=== PATIENT | female | born 1935 | race Caucasian/White ===

== ENCOUNTER → 2016-09-14 | Outpatient (CLI) | payer OTHER, MEDICARE ==
[~2016-09-14] VITALS: Ht 162.6 cm; Wt 63.5 kg
[~2016-09-14] MED LIST: CALCIUM 500 +1 EACH PO; CENTRUM SILVER1 EAC4 PO; DOCUSATE SODIU100 MG PO; HYDROCHLOROTH12.5 M2 PO; HYDROCODON-ACE1 EAC7 PO; LIPITOR10 MG PO; NORVASC5 MG PO; TRICOR145 MG PO
== END | disposition home or self-care (01) ==
LOC: AMB 07:46
DX: K31.89 Other diseases of stomach and duodenum (principal); D64.9 Anemia, unspecified; I10 Essential (primary) hypertension; E78.5 Hyperlipidemia, unspecified; Z86.010 Personal history of colon polyps; Z87.11 Personal history of peptic ulcer disease; Z87.891 Personal history of nicotine dependence; Z82.49 Family history of ischemic heart disease and other diseases of the circulatory system; Z88.5 Allergy status to narcotic agent; Z88.6 Allergy status to analgesic agent
CPT/HCPCS: 88305; J0330; J1100; J2250; J2405; J3010

== ENCOUNTER 2016-09-16 16:36 | Inpatient (IN) | payer OTHER, MEDICARE ==
[~2016-09-16] VITALS: Ht 162.6 cm; Wt 63.0 kg
[2016-09-16 17:45] LABS: ADD MIUA? YES; BILIRUBIN NEGATIVE; BLOOD NEGATIVE; GLUCOSE (STRIP) NEGATIVE; KETONES 5; LEUKOCYTES NEGATIVE; NITRITE NEGATIVE; PROTEIN (STRIP) 100; SPECIFIC GRAVITY 1.019 (1.000-1.030)
[2016-09-16 17:51] LABS: BACTERIA RARE /HPF; COLOR DK YELLOW ((YELLOW)); EPITHELIAL CELLS RARE /HPF; MUCUS 4+ /LPF; RED BLOOD CELLS 0-5 /HPF (0-5); WHITE BLOOD CELLS 0-5 /HPF (0-5)
[2016-09-16 18:07] LABS: HEMATOCRIT 44.5 % (36.0-46.0); MCH 29.1 PG (29.0-34.0); MCHC 32.6 G/DL (30.0-36.0); MCV 89.2 FL (83-99); MEAN PLAT.VOLUME 10.7 uM^3 (9.5-12.4); PLATELET COUNT 254 K/uL (156-360); RBC DIS.WIDTH-CV 14.5 % (11.8-14.6); RBC DIS.WIDTH-SD 46.8 % (39-53); RED BLOOD COUNT 4.99 M/uL (3.80-5.20); WHITE BLOOD COUNT 11.3 K/uL (4.1-10.2)
[2016-09-16 18:14] LABS: CHLORIDE 104 mEq/L (99-109); POTASSIUM 3.6 mEq/L (3.7-5.4); SODIUM 143 mEq/L (136-147)
[2016-09-16 18:17] LABS: GLUCOSE 159 mg/dL (70-99)
[2016-09-16 18:18] LABS: ANION GAP 18 MEQ/L (2-14)
[2016-09-16 18:19] LABS: TOTAL BILIRUBIN 0.8 mg/dL (0.0-1.0)
[2016-09-16 18:20] LABS: ALKALINE PHOSPHATASE 89 IU/L (3-129); GFR ESTIMATE (CALCULATED) > 59 mL/min/
[2016-09-16 18:21] LABS: UREA NITROGEN (BUN) 19 mg/dL (9-23)
[2016-09-17] VITALS (7 sets, daily range): BP systolic 122–138; BP diastolic 58–64
[2016-09-17 06:46] LABS: HEMATOCRIT 30.4 % (36.0-46.0); MCH 29.2 PG (29.0-34.0); MCHC 32.2 G/DL (30.0-36.0); MCV 90.5 FL (83-99); MEAN PLAT.VOLUME 10.9 uM^3 (9.5-12.4); PLATELET COUNT 188 K/uL (156-360); RBC DIS.WIDTH-CV 14.8 % (11.8-14.6); RBC DIS.WIDTH-SD 48.9 % (39-53); RED BLOOD COUNT 3.36 M/uL (3.80-5.20)
[2016-09-17 07:01] LABS: ALKALINE PHOSPHATASE 52 IU/L (3-129); ANION GAP 9 MEQ/L (2-14); CHLORIDE 109 MEQ/L (99-109); GFR ESTIMATE (CALCULATED) > 59 mL/min/; GLUCOSE 150 mg/dL (70-99); MAGNESIUM 1.5 mg/dl (1.3-2.7); POTASSIUM 3.6 MEQ/L (3.7-5.4); SAMPLE HEMOLYSIS CHECK 0; SAMPLE ICTERIC CHECK 0; SAMPLE LIPEMIA CHECK 0; SODIUM 139 MEQ/L (136-147); TOTAL BILIRUBIN 0.6 MG/DL (0.0-1.0); UREA NITROGEN (BUN) 19 mg/dL (9-23)
[2016-09-17 07:16] LABS: ABS NEUTROPHIL COUNT 5.3; ANISOCYTOSIS 1+; BAND NEUTROPHILS 26.3 % (0-8.0); EOSINOPHIL ABS CT 0; INSTRUMENT ABS NEUTROPHIL CT 5.2 K/uL; LYMPHOCYTES 3.5 % (15.0-45.0); MICROCYTOSIS 1+; PLAT.SUFFICIENCY ADEQUATE; SEG.NEUTROPHILS 61.4 % (46.0-76.0)
[2016-09-18 03:41] VITALS: BP 150/67
[2016-09-18 06:14] LABS: HEMATOCRIT 27.2 % (36.0-46.0); MCV 90.7 FL (83-99); MEAN PLAT.VOLUME 10.9 uM^3 (9.5-12.4); PLATELET COUNT 163 K/uL (156-360); RBC DIS.WIDTH-CV 14.9 % (11.8-14.6); RBC DIS.WIDTH-SD 49.9 % (39-53)
[2016-09-18 06:15] LABS: WHITE BLOOD COUNT 8.9 K/uL (4.1-10.2)
[2016-09-18 07:06] LABS: ALKALINE PHOSPHATASE 55 IU/L (3-129); ANION GAP 6 MEQ/L (2-14); CHLORIDE 111 MEQ/L (99-109); GFR ESTIMATE (CALCULATED) > 59 mL/min/; GLUCOSE 151 mg/dL (70-99); POTASSIUM 3.4 MEQ/L (3.7-5.4); SAMPLE HEMOLYSIS CHECK 0; SAMPLE ICTERIC CHECK 0; SAMPLE LIPEMIA CHECK 0; SODIUM 140 MEQ/L (136-147); TOTAL BILIRUBIN 0.5 MG/DL (0.0-1.0); UREA NITROGEN (BUN) 21 mg/dL (9-23)
[2016-09-18 07:09] LABS: MAGNESIUM 2.1 mg/dl (1.3-2.7)
[2016-09-18 07:20] VITALS: BP 154/55
[2016-09-18 07:57] LABS: EOSINOPHIL (%) 0.1 % (0-5); HEMATOLOGY COMMENT 1 SMEAR COMPATIBLE; IMMATURE GRANULOCYTE (%) 0.7 % (0.0-0.7); IMMATURE GRANULOCYTE COUNT 0.1 K/uL; INSTRUMENT ABS NEUTROPHIL CT 7.6 K/uL; LYMPHOCYTE COUNT 0.9 K/uL (1.0-2.8); MONOCYTE (%) 4.6 % (3-12); MONOCYTE COUNT 0.4 K/uL (0-0.8); NEUTROPHIL COUNT 7.6 K/uL (1.8-6.4)
[2016-09-18 12:20] VITALS: BP 148/56
[2016-09-18 15:52] VITALS: BP 140/64
[2016-09-18 18:38] VITALS: BP 143/65
[2016-09-18 23:13] VITALS: BP 125/60
[2016-09-19 02:51] VITALS: BP 134/63
[2016-09-19 06:55] VITALS: BP 126/62
[2016-09-19 07:12] LABS: EOSINOPHIL COUNT 0.4 K/uL (0-0.3); HEMATOCRIT 24.2 % (36.0-46.0); IMMATURE GRANULOCYTE (%) 1.4 % (0.0-0.7); IMMATURE GRANULOCYTE COUNT 0.1 K/uL; INSTRUMENT ABS NEUTROPHIL CT 6.1 K/uL; LYMPHOCYTE COUNT 1.1 K/uL (1.0-2.8); MCH 29.3 PG (29.0-34.0); MCHC 32.2 G/DL (30.0-36.0); MEAN PLAT.VOLUME 10.6 uM^3 (9.5-12.4); MONOCYTE (%) 6.5 % (3-12); MONOCYTE COUNT 0.5 K/uL (0-0.8); NEUTROPHIL (%) 73.3 % (45-76); NEUTROPHIL COUNT 6.1 K/uL (1.8-6.4); PLATELET COUNT 152 K/uL (156-360); RBC DIS.WIDTH-CV 14.6 % (11.8-14.6); RBC DIS.WIDTH-SD 49.2 % (39-53); RED BLOOD COUNT 2.66 M/uL (3.80-5.20); WHITE BLOOD COUNT 8.4 K/uL (4.1-10.2)
[2016-09-19 07:34] LABS: ALKALINE PHOSPHATASE 74 IU/L (3-129); ANION GAP 5 MEQ/L (2-14); CHLORIDE 110 MEQ/L (99-109); GFR ESTIMATE (CALCULATED) > 59 mL/min/; GLUCOSE 135 mg/dL (70-99); MAGNESIUM 1.9 mg/dl (1.3-2.7); POTASSIUM 3.5 MEQ/L (3.7-5.4); SAMPLE HEMOLYSIS CHECK 0; SAMPLE ICTERIC CHECK 0; SAMPLE LIPEMIA CHECK 0; SODIUM 139 MEQ/L (136-147); TOTAL BILIRUBIN 0.5 MG/DL (0.0-1.0); UREA NITROGEN (BUN) 15 mg/dL (9-23)
[2016-09-19 12:22] VITALS: BP 134/63
[2016-09-19 16:05] VITALS: BP 149/78
[2016-09-19 19:55] VITALS: BP 132/61
[2016-09-19 23:22] VITALS: BP 139/62
[2016-09-20 04:54] VITALS: BP 127/65
[2016-09-20 07:02] LABS: EOSINOPHIL (%) 7.7 % (0-5); EOSINOPHIL COUNT 0.7 K/uL (0-0.3); HEMATOCRIT 24.3 % (36.0-46.0); IMMATURE GRANULOCYTE (%) 1.8 % (0.0-0.7); IMMATURE GRANULOCYTE COUNT 0.2 K/uL; INSTRUMENT ABS NEUTROPHIL CT 5.9 K/uL; LYMPHOCYTE COUNT 1.3 K/uL (1.0-2.8); MCH 29.1 PG (29.0-34.0); MCHC 32.1 G/DL (30.0-36.0); MCV 90.7 FL (83-99); MEAN PLAT.VOLUME 10.4 uM^3 (9.5-12.4); MONOCYTE (%) 7.2 % (3-12); MONOCYTE COUNT 0.6 K/uL (0-0.8); NEUTROPHIL (%) 67.6 % (45-76); NEUTROPHIL COUNT 5.9 K/uL (1.8-6.4); PLATELET COUNT 180 K/uL (156-360); RBC DIS.WIDTH-CV 14.3 % (11.8-14.6); RBC DIS.WIDTH-SD 47.6 % (39-53); RED BLOOD COUNT 2.68 M/uL (3.80-5.20); WHITE BLOOD COUNT 8.7 K/uL (4.1-10.2)
[2016-09-20 07:32] VITALS: BP 125/60
[2016-09-20 07:37] LABS: ANION GAP 7 MEQ/L (2-14); CHLORIDE 109 MEQ/L (99-109); GFR ESTIMATE (CALCULATED) > 59 mL/min/; GLUCOSE 124 mg/dL (70-99); MAGNESIUM 1.7 mg/dl (1.3-2.7); POTASSIUM 3.2 MEQ/L (3.7-5.4); SAMPLE HEMOLYSIS CHECK 0; SAMPLE ICTERIC CHECK 0; SAMPLE LIPEMIA CHECK 0; SODIUM 140 MEQ/L (136-147); TOTAL BILIRUBIN 0.5 MG/DL (0.0-1.0); UREA NITROGEN (BUN) 8 mg/dL (9-23)
[2016-09-20 07:39] LABS: ALKALINE PHOSPHATASE 109 IU/L (3-129)
[2016-09-20 11:25] VITALS: BP 137/66
[2016-09-20 15:41] VITALS: BP 139/63
[2016-09-20 19:06] VITALS: BP 133/62
[2016-09-20 23:39] VITALS: BP 139/63
[2016-09-21 03:10] VITALS: BP 141/65
[2016-09-21 07:45] VITALS: BP 127/60
[2016-09-21 09:05] LABS: HEMATOCRIT 24.8 % (36.0-46.0); MCH 28.6 PG (29.0-34.0); MCHC 31.9 G/DL (30.0-36.0); MCV 89.9 FL (83-99); MEAN PLAT.VOLUME 9.6 uM^3 (9.5-12.4); PLATELET COUNT 211 K/uL (156-360); RBC DIS.WIDTH-CV 14.2 % (11.8-14.6); RBC DIS.WIDTH-SD 46.4 % (39-53); RED BLOOD COUNT 2.76 M/uL (3.80-5.20); WHITE BLOOD COUNT 8.4 K/uL (4.1-10.2)
[2016-09-21 09:33] LABS: EOSINOPHIL (%) 6.5 % (0-5); EOSINOPHIL COUNT 0.6 K/uL (0-0.3); IMMATURE GRANULOCYTE (%) 2.7 % (0.0-0.7); IMMATURE GRANULOCYTE COUNT 0.2 K/uL; INSTRUMENT ABS NEUTROPHIL CT 5.6 K/uL; LYMPHOCYTE COUNT 1.3 K/uL (1.0-2.8); MONOCYTE (%) 8.6 % (3-12); MONOCYTE COUNT 0.7 K/uL (0-0.8); NEUTROPHIL (%) 66.5 % (45-76); NEUTROPHIL COUNT 5.6 K/uL (1.8-6.4)
[2016-09-21 09:34] LABS: ALKALINE PHOSPHATASE 150 IU/L (3-129); ANION GAP 6 MEQ/L (2-14); CHLORIDE 108 MEQ/L (99-109); GFR ESTIMATE (CALCULATED) > 59 mL/min/; GLUCOSE 116 mg/dL (70-99); MAGNESIUM 1.6 mg/dl (1.3-2.7); POTASSIUM 3.7 MEQ/L (3.7-5.4); SAMPLE HEMOLYSIS CHECK 0; SAMPLE ICTERIC CHECK 0; SAMPLE LIPEMIA CHECK 0; SODIUM 140 MEQ/L (136-147); TOTAL BILIRUBIN 0.5 MG/DL (0.0-1.0); UREA NITROGEN (BUN) 6 mg/dL (9-23)
[2016-09-21 11:35] VITALS: BP 133/60
[2016-09-21 16:00] VITALS: BP 145/63
[2016-09-21 19:30] VITALS: BP 137/62
[2016-09-21 23:35] VITALS: BP 125/60
[2016-09-22 03:10] VITALS: BP 141/63
[2016-09-22 06:48] LABS: HEMATOCRIT 24.5 % (36.0-46.0); MCH 28.7 PG (29.0-34.0); MCHC 31.8 G/DL (30.0-36.0); MCV 90.1 FL (83-99); MEAN PLAT.VOLUME 9.7 uM^3 (9.5-12.4); PLATELET COUNT 234 K/uL (156-360); RBC DIS.WIDTH-CV 14.3 % (11.8-14.6); RBC DIS.WIDTH-SD 46.4 % (39-53); RED BLOOD COUNT 2.72 M/uL (3.80-5.20); WHITE BLOOD COUNT 8.8 K/uL (4.1-10.2)
[2016-09-22 07:00] VITALS: BP 123/57
[2016-09-22 07:16] LABS: ALKALINE PHOSPHATASE 145 IU/L (3-129); ANION GAP 8 MEQ/L (2-14); CHLORIDE 106 MEQ/L (99-109); GFR ESTIMATE (CALCULATED) > 59 mL/min/; GLUCOSE 103 mg/dL (70-99); MAGNESIUM 1.7 mg/dl (1.3-2.7); POTASSIUM 3.3 MEQ/L (3.7-5.4); SAMPLE HEMOLYSIS CHECK 0; SAMPLE ICTERIC CHECK 0; SAMPLE LIPEMIA CHECK 0; SODIUM 141 MEQ/L (136-147); TOTAL BILIRUBIN 0.5 MG/DL (0.0-1.0); UREA NITROGEN (BUN) 6 mg/dL (9-23)
[2016-09-22 07:41] LABS: EOSINOPHIL (%) 6.3 % (0-5); EOSINOPHIL COUNT 0.6 K/uL (0-0.3); IMMATURE GRANULOCYTE (%) 2.7 % (0.0-0.7); IMMATURE GRANULOCYTE COUNT 0.2 K/uL; INSTRUMENT ABS NEUTROPHIL CT 5.8 K/uL; LYMPHOCYTE COUNT 1.5 K/uL (1.0-2.8); MONOCYTE (%) 8.5 % (3-12); MONOCYTE COUNT 0.8 K/uL (0-0.8); NEUTROPHIL (%) 65.8 % (45-76); NEUTROPHIL COUNT 5.8 K/uL (1.8-6.4)
[2016-09-22 11:50] VITALS: BP 129/57
[2016-09-22 15:42] VITALS: BP 120/56
[2016-09-22 19:20] VITALS: BP 134/59
[2016-09-22 23:22] VITALS: BP 111/53
[2016-09-23 03:27] VITALS: BP 110/54
[2016-09-23 07:36] VITALS: BP 118/55
[2016-09-23] MEDS ORDERED: TRAMADOL HCL50 MG PO (09:49)
[2016-09-23 11:05] VITALS: BP 119/58
== END 2016-09-23 15:55 | disposition home health service (06) | DRG 329 ==
LOC: EME 16:36 → 2EAST 20:34 → EDOF 20:34 → 2EAST 09-17 03:31
PROVIDERS: Nurse Practitioner Family; Surgery
DX: K65.8 Other peritonitis (principal); K55.049 Acute infarction of large intestine, extent unspecified; E78.5 Hyperlipidemia, unspecified; I10 Essential (primary) hypertension; R00.0 Tachycardia, unspecified; D72.829 Elevated white blood cell count, unspecified; D64.9 Anemia, unspecified; Z87.891 Personal history of nicotine dependence; J45.909 Unspecified asthma, uncomplicated
CPT/HCPCS: 71010; 74000; 74177; 80053; 81003; 82948; 83735; 84100; 85025; 85027; 86900; 86901; 88305; 88307; 93005; 97530 GO; 99281; 99285; J0131; J0330; J1100; J1170; J1650; J2250; J2405; J2543; J3010; J3475; J7030; J7040; J7050

== ENCOUNTER → 2017-06-20 | Outpatient (CLI) | payer MEDICARE ==
[~2017-06-20] MED LIST changes: +ACID REDUCER 1150 MG PO; +KLOR-CON 1010 ME1 PO; +TRAMADOL HCL50 MG PO
== END | disposition home or self-care (01) ==
LOC: CDC 14:23
DX: Z01.810 Encounter for preprocedural cardiovascular examination (principal); K57.90 Diverticulosis of intestine, part unspecified, without perforation or abscess without bleeding; R94.31 Abnormal electrocardiogram [ECG] [EKG]
CPT/HCPCS: 93000

== ENCOUNTER 2017-06-26 22:03 | Inpatient (IN) | payer OTHER, MEDICARE ==
[~2017-06-26] VITALS: Ht 162.6 cm; Wt 73.7 kg
[2017-06-27 05:58] VITALS: BP 149/66
[2017-06-27 18:32] VITALS: BP 119/58
[2017-06-27 19:34] VITALS: BP 119/57
[2017-06-27 23:18] VITALS: BP 117/55
[2017-06-28 03:41] VITALS: BP 130/59
[2017-06-28 05:09] LABS: HEMATOCRIT 28.7 % (36.0-46.0); MCH 29.4 PG (29.0-34.0); MCHC 33.8 G/DL (30.0-36.0); PLATELET COUNT 175 K/uL (156-360); RBC DIS.WIDTH-CV 13.6 % (11.8-14.6); RBC DIS.WIDTH-SD 42.7 % (39-53); WHITE BLOOD COUNT 10.9 K/uL (4.1-10.2)
[2017-06-28 05:17] LABS: HEMOGLOBIN 9.7 G/DL (11.9-15.5)
[2017-06-28 05:38] LABS: ALBUMIN 2.2 G/DL (3.2-4.8); ALT (GPT) 17 IU/L (3-49); AST (GOT) 21 IU/L (2-34); CHLORIDE 106 MEQ/L (99-109); CREATININE 0.8 MG/DL (0.6-1.3); GFR ESTIMATE (CALCULATED) > 59 mL/min/; GLUCOSE 142 mg/dL (70-99); MAGNESIUM 1.6 mg/dl (1.3-2.7); PHOSPHORUS 3.4 mg/dL (2.5-4.9); SODIUM 140 MEQ/L (136-147); UREA NITROGEN (BUN) 14 mg/dL (9-23)
[2017-06-28 05:45] LABS: ALKALINE PHOSPHATASE 37 IU/L (3-129); POTASSIUM 3.1 MEQ/L (3.7-5.4); TOTAL BILIRUBIN 0.4 MG/DL (0.0-1.0); TOTAL PROTEIN 3.6 G/DL (6.4-8.3)
[2017-06-28 07:39] VITALS: BP 111/56
[2017-06-28 12:06] VITALS: BP 117/53
[2017-06-28 15:45] VITALS: BP 142/64
[2017-06-28 19:50] VITALS: BP 145/67
[2017-06-29 01:22] VITALS: BP 139/82
[2017-06-29 04:41] VITALS: BP 130/81
[2017-06-29 09:00] VITALS: BP 169/72
[2017-06-29 09:00] LABS: BASOPHIL (%) 0.1 % (0-1); EOSINOPHIL (%) 0.1 % (0-5); HEMATOCRIT 30.5 % (36.0-46.0); HEMOGLOBIN 10.2 G/DL (11.9-15.5); IMMATURE GRANULOCYTE (%) 0.5 % (0.0-0.7); LYMPHOCYTE (%) 8.5 % (15-42); LYMPHOCYTE COUNT 1.2 K/uL (1.0-2.8); MCHC 33.4 G/DL (30.0-36.0); MCV 89.7 FL (83-99); MONOCYTE (%) 6.5 % (3-12); MONOCYTE COUNT 0.9 K/uL (0-0.8); NEUTROPHIL (%) 84.3 % (45-76); NEUTROPHIL COUNT 11.4 K/uL (1.8-6.4); PLATELET COUNT 171 K/uL (156-360); RBC DIS.WIDTH-CV 14.6 % (11.8-14.6); RBC DIS.WIDTH-SD 47.8 % (39-53); WHITE BLOOD COUNT 13.5 K/uL (4.1-10.2)
[2017-06-29 09:26] LABS: ALBUMIN 2.3 G/DL (3.2-4.8); ALKALINE PHOSPHATASE 49 IU/L (3-129); ALT (GPT) 15 IU/L (3-49); AST (GOT) 15 IU/L (2-34); CHLORIDE 110 MEQ/L (99-109); CREATININE 0.6 MG/DL (0.6-1.3); GFR ESTIMATE (CALCULATED) > 59 mL/min/; GLUCOSE 136 mg/dL (70-99); MAGNESIUM 1.7 mg/dl (1.3-2.7); PHOSPHORUS 2.3 mg/dL (2.5-4.9); POTASSIUM 3.8 MEQ/L (3.7-5.4); SODIUM 143 MEQ/L (136-147); TOTAL BILIRUBIN 0.7 MG/DL (0.0-1.0); TOTAL PROTEIN 4.1 G/DL (6.4-8.3); UREA NITROGEN (BUN) 17 mg/dL (9-23)
[2017-06-29 12:00] VITALS: BP 153/70
[2017-06-29 14:29] LABS: APPEARANCE CLEAR ((CLEAR)); BILIRUBIN NEGATIVE; BLOOD LARGE; COLOR YELLOW ((YELLOW)); GLUCOSE (STRIP) NEGATIVE; KETONES 5; LEUKOCYTES TRACE; NITRITE NEGATIVE; PROTEIN (STRIP) 30; SPECIFIC GRAVITY 1.016 (1.000-1.030); UROBILINOGEN 0.2 MG/DL (0.2-1.0)
[2017-06-29 14:37] LABS: BACTERIA 1+ /HPF; EPITHELIAL CELLS NONE SEEN /HPF; MUCUS TRACE /LPF; RED BLOOD CELLS TNTC /HPF (0-5); WHITE BLOOD CELLS 15-20 /HPF (0-5)
[2017-06-29 16:56] VITALS: BP 150/65
[2017-06-29 18:00] LABS: BASOPHIL (%) 0.1 % (0-1); EOSINOPHIL (%) 0.1 % (0-5); HEMATOCRIT 31.6 % (36.0-46.0); HEMOGLOBIN 10.5 G/DL (11.9-15.5); IMMATURE GRANULOCYTE (%) 0.9 % (0.0-0.7); LYMPHOCYTE (%) 6.4 % (15-42); LYMPHOCYTE COUNT 0.9 K/uL (1.0-2.8); MCH 30.1 PG (29.0-34.0); MCHC 33.2 G/DL (30.0-36.0); MCV 90.5 FL (83-99); MONOCYTE (%) 4.4 % (3-12); MONOCYTE COUNT 0.6 K/uL (0-0.8); NEUTROPHIL (%) 88.1 % (45-76); NEUTROPHIL COUNT 12.1 K/uL (1.8-6.4); PLATELET COUNT 188 K/uL (156-360); RBC DIS.WIDTH-CV 14.8 % (11.8-14.6); RBC DIS.WIDTH-SD 49.1 % (39-53); RED BLOOD COUNT 3.49 M/uL (3.80-5.20); WHITE BLOOD COUNT 13.7 K/uL (4.1-10.2)
[2017-06-29 19:30] VITALS: BP 128/60
[2017-06-30 00:15] VITALS: BP 122/60
[2017-06-30 03:16] VITALS: BP 122/66
[2017-06-30 06:02] LABS: HEMATOCRIT 29.1 % (36.0-46.0); HEMOGLOBIN 9.3 G/DL (11.9-15.5); MCH 29.1 PG (29.0-34.0); MCV 90.9 FL (83-99); PLATELET COUNT 183 K/uL (156-360); RBC DIS.WIDTH-CV 14.6 % (11.8-14.6); RBC DIS.WIDTH-SD 49.2 % (39-53); WHITE BLOOD COUNT 11.8 K/uL (4.1-10.2)
[2017-06-30 06:24] LABS: ALBUMIN 2.2 G/DL (3.2-4.8); ALKALINE PHOSPHATASE 52 IU/L (3-129); ALT (GPT) 13 IU/L (3-49); AST (GOT) 11 IU/L (2-34); CHLORIDE 111 MEQ/L (99-109); CREATININE 0.7 MG/DL (0.6-1.3); GFR ESTIMATE (CALCULATED) > 59 mL/min/; GLUCOSE 132 mg/dL (70-99); POTASSIUM 3.5 MEQ/L (3.7-5.4); SODIUM 145 MEQ/L (136-147); TOTAL BILIRUBIN 0.8 MG/DL (0.0-1.0); TOTAL PROTEIN 3.7 G/DL (6.4-8.3); UREA NITROGEN (BUN) 20 mg/dL (9-23)
[2017-06-30 07:49] VITALS: BP 122/59
[2017-06-30 11:20] VITALS: BP 125/56
[2017-06-30 15:56] VITALS: BP 122/56
[2017-06-30 20:30] VITALS: BP 129/60
[2017-07-01 00:10] VITALS: BP 128/65
[2017-07-01 01:56] VITALS: BP 130/74
[2017-07-01 05:48] LABS: BASOPHIL (%) 0.2 % (0-1); EOSINOPHIL (%) 1.7 % (0-5); EOSINOPHIL COUNT 0.2 K/uL (0-0.3); HEMATOCRIT 27.8 % (36.0-46.0); IMMATURE GRANULOCYTE (%) 0.7 % (0.0-0.7); LYMPHOCYTE (%) 8.7 % (15-42); LYMPHOCYTE COUNT 0.9 K/uL (1.0-2.8); MCH 29.3 PG (29.0-34.0); MCHC 32.4 G/DL (30.0-36.0); MCV 90.6 FL (83-99); MONOCYTE COUNT 0.8 K/uL (0-0.8); NEUTROPHIL (%) 81.7 % (45-76); NEUTROPHIL COUNT 8.7 K/uL (1.8-6.4); PLATELET COUNT 198 K/uL (156-360); RBC DIS.WIDTH-CV 14.8 % (11.8-14.6); RED BLOOD COUNT 3.07 M/uL (3.80-5.20); WHITE BLOOD COUNT 10.6 K/uL (4.1-10.2)
[2017-07-01 06:33] LABS: ALBUMIN 2.3 G/DL (3.2-4.8); ALKALINE PHOSPHATASE 55 IU/L (3-129); ALT (GPT) 11 IU/L (3-49); AST (GOT) 10 IU/L (2-34); CHLORIDE 110 MEQ/L (99-109); CREATININE 0.7 MG/DL (0.6-1.3); GFR ESTIMATE (CALCULATED) > 59 mL/min/; GLUCOSE 115 mg/dL (70-99); MAGNESIUM 2.2 mg/dl (1.3-2.7); POTASSIUM 3.5 MEQ/L (3.7-5.4); SODIUM 145 MEQ/L (136-147); TOTAL BILIRUBIN 0.9 MG/DL (0.0-1.0); TOTAL PROTEIN 4.1 G/DL (6.4-8.3); UREA NITROGEN (BUN) 25 mg/dL (9-23)
[2017-07-01 07:42] VITALS: BP 128/59
[2017-07-01 11:07] VITALS: BP 119/59
[2017-07-01 14:53] VITALS: BP 156/68
[2017-07-01 20:45] VITALS: BP 130/80
[2017-07-02 04:05] VITALS: BP 120/70
[2017-07-02 04:37] LABS: HEMATOCRIT 31.4 % (36.0-46.0); HEMOGLOBIN 10.3 G/DL (11.9-15.5); MCHC 32.8 G/DL (30.0-36.0); MCV 91.5 FL (83-99); PLATELET COUNT 253 K/uL (156-360); RBC DIS.WIDTH-CV 14.7 % (11.8-14.6); RBC DIS.WIDTH-SD 49.3 % (39-53); RED BLOOD COUNT 3.43 M/uL (3.80-5.20); WHITE BLOOD COUNT 14.7 K/uL (4.1-10.2)
[2017-07-02 04:49] LABS: CHLORIDE 116 mEq/L (99-109); POTASSIUM 3.9 mEq/L (3.7-5.4); SODIUM 150 mEq/L (136-147)
[2017-07-02 04:50] LABS: GLUCOSE 143 mg/dL (70-99)
[2017-07-02 04:54] LABS: CREATININE 0.8 mg/dL (0.6-1.3); GFR ESTIMATE (CALCULATED) > 59 mL/min/
[2017-07-02 04:55] LABS: UREA NITROGEN (BUN) 28 mg/dL (9-23)
[2017-07-02 07:25] VITALS: BP 136/66
[2017-07-02 11:51] VITALS: BP 127/57
[2017-07-02 12:15] LABS: APPEARANCE SL.HAZY ((CLEAR)); BILIRUBIN NEGATIVE; BLOOD MODERATE; COLOR YELLOW ((YELLOW)); GLUCOSE (STRIP) NEGATIVE; KETONES 5; LEUKOCYTES NEGATIVE; NITRITE NEGATIVE; PROTEIN (STRIP) 30; SPECIFIC GRAVITY 1.025 (1.000-1.030); UROBILINOGEN 0.2 MG/DL (0.2-1.0)
[2017-07-02 12:20] LABS: BACTERIA RARE /HPF; CALCIUM OXALATE CRYSTALS 2+ /HPF; EPITHELIAL CELLS NONE SEEN /HPF; MUCUS TRACE /LPF; RED BLOOD CELLS TNTC /HPF (0-5); UCUL ADDED? YES
[2017-07-02 15:31] VITALS: BP 131/64
[2017-07-02 19:13] VITALS: BP 137/63
[2017-07-03 00:27] VITALS: BP 126/61
[2017-07-03 03:43] VITALS: BP 137/63
[2017-07-03 04:54] LABS: BASOPHIL (%) 0.1 % (0-1); EOSINOPHIL (%) 0.1 % (0-5); HEMATOCRIT 27.7 % (36.0-46.0); HEMOGLOBIN 9.1 G/DL (11.9-15.5); IMMATURE GRANULOCYTE (%) 1.5 % (0.0-0.7); LYMPHOCYTE (%) 8.5 % (15-42); LYMPHOCYTE COUNT 1.2 K/uL (1.0-2.8); MCHC 32.9 G/DL (30.0-36.0); MCV 91.4 FL (83-99); MONOCYTE COUNT 1.1 K/uL (0-0.8); NEUTROPHIL (%) 81.8 % (45-76); NEUTROPHIL COUNT 11.6 K/uL (1.8-6.4); NRBC (%) 0.1 /100 WBC (0-0); PLATELET COUNT 268 K/uL (156-360); RBC DIS.WIDTH-CV 14.8 % (11.8-14.6); RBC DIS.WIDTH-SD 49.8 % (39-53); RED BLOOD COUNT 3.03 M/uL (3.80-5.20); WHITE BLOOD COUNT 14.2 K/uL (4.1-10.2)
[2017-07-03 05:22] LABS: CHLORIDE 117 mEq/L (99-109); POTASSIUM 3.4 mEq/L (3.7-5.4); SODIUM 150 mEq/L (136-147)
[2017-07-03 05:24] LABS: GLUCOSE 169 mg/dL (70-99)
[2017-07-03 05:28] LABS: CREATININE 0.9 mg/dL (0.6-1.3); GFR ESTIMATE (CALCULATED) > 59 mL/min/; PHOSPHORUS 2.3 mg/dL (2.5-4.9)
[2017-07-03 05:29] LABS: UREA NITROGEN (BUN) 27 mg/dL (9-23)
[2017-07-03 07:41] VITALS: BP 138/64
[2017-07-03 11:13] VITALS: BP 137/55
[2017-07-03 15:30] VITALS: BP 134/61
[2017-07-03 15:39] LABS: BASOPHIL (%) 0.2 % (0-1); EOSINOPHIL (%) 0.5 % (0-5); EOSINOPHIL COUNT 0.1 K/uL (0-0.3); HEMATOCRIT 28.2 % (36.0-46.0); HEMOGLOBIN 9.1 G/DL (11.9-15.5); IMMATURE GRANULOCYTE (%) 2.3 % (0.0-0.7); LYMPHOCYTE (%) 9.1 % (15-42); LYMPHOCYTE COUNT 1.2 K/uL (1.0-2.8); MCH 29.4 PG (29.0-34.0); MCHC 32.3 G/DL (30.0-36.0); MONOCYTE (%) 7.5 % (3-12); NEUTROPHIL (%) 80.4 % (45-76); NEUTROPHIL COUNT 10.6 K/uL (1.8-6.4); NRBC (%) 0.2 /100 WBC (0-0); PLATELET COUNT 287 K/uL (156-360); RBC DIS.WIDTH-CV 14.7 % (11.8-14.6); RBC DIS.WIDTH-SD 49.3 % (39-53); WHITE BLOOD COUNT 13.1 K/uL (4.1-10.2)
[2017-07-03 16:09] LABS: CHLORIDE 115 MEQ/L (99-109); CREATININE 0.7 MG/DL (0.6-1.3); GFR ESTIMATE (CALCULATED) > 59 mL/min/; GLUCOSE 145 mg/dL (70-99); POTASSIUM 3.2 MEQ/L (3.7-5.4); SODIUM 146 MEQ/L (136-147); UREA NITROGEN (BUN) 21 mg/dL (9-23)
[2017-07-03 19:00] VITALS: BP 130/59
[2017-07-04] VITALS (7 sets, daily range): BP systolic 127–141; BP diastolic 58–68
[2017-07-04 06:50] LABS: BASOPHIL (%) 0.2 % (0-1); EOSINOPHIL (%) 0.6 % (0-5); EOSINOPHIL COUNT 0.1 K/uL (0-0.3); HEMATOCRIT 26.8 % (36.0-46.0); HEMOGLOBIN 8.6 G/DL (11.9-15.5); IMMATURE GRANULOCYTE (%) 1.7 % (0.0-0.7); LYMPHOCYTE (%) 9.9 % (15-42); LYMPHOCYTE COUNT 1.2 K/uL (1.0-2.8); MCH 29.4 PG (29.0-34.0); MCHC 32.1 G/DL (30.0-36.0); MCV 91.5 FL (83-99); MONOCYTE (%) 6.5 % (3-12); MONOCYTE COUNT 0.8 K/uL (0-0.8); NEUTROPHIL (%) 81.1 % (45-76); NEUTROPHIL COUNT 9.6 K/uL (1.8-6.4); NRBC (%) 0.2 /100 WBC (0-0); PLATELET COUNT 267 K/uL (156-360); RBC DIS.WIDTH-SD 50.6 % (39-53); RED BLOOD COUNT 2.93 M/uL (3.80-5.20); WHITE BLOOD COUNT 11.8 K/uL (4.1-10.2)
[2017-07-04 07:11] LABS: CHLORIDE 116 MEQ/L (99-109); CREATININE 0.7 MG/DL (0.6-1.3); GFR ESTIMATE (CALCULATED) > 59 mL/min/; GLUCOSE 150 mg/dL (70-99); POTASSIUM 3.4 MEQ/L (3.7-5.4); SODIUM 149 MEQ/L (136-147); UREA NITROGEN (BUN) 15 mg/dL (9-23)
[2017-07-05 07:10] VITALS: BP 128/58
[2017-07-05 10:45] LABS: HEMATOCRIT 25.7 % (36.0-46.0); HEMOGLOBIN 8.3 G/DL (11.9-15.5); MCH 29.5 PG (29.0-34.0); MCHC 32.3 G/DL (30.0-36.0); MCV 91.5 FL (83-99); PLATELET COUNT 313 K/uL (156-360); RBC DIS.WIDTH-CV 14.7 % (11.8-14.6); RBC DIS.WIDTH-SD 50.4 % (39-53); RED BLOOD COUNT 2.81 M/uL (3.80-5.20); WHITE BLOOD COUNT 13.9 K/uL (4.1-10.2)
[2017-07-05 11:04] LABS: CHLORIDE 112 MEQ/L (99-109); POTASSIUM 3.2 MEQ/L (3.7-5.4); SODIUM 144 MEQ/L (136-147)
[2017-07-05 11:10] LABS: CREATININE 0.6 MG/DL (0.6-1.3); GFR ESTIMATE (CALCULATED) > 59 mL/min/; GLUCOSE 145 mg/dL (70-99); UREA NITROGEN (BUN) 11 mg/dL (9-23)
[2017-07-05 15:30] VITALS: BP 148/67
[2017-07-05 22:45] VITALS: BP 119/56
[2017-07-06 06:05] LABS: HEMOGLOBIN 8.1 G/DL (11.9-15.5); MCH 29.3 PG (29.0-34.0); MCHC 32.4 G/DL (30.0-36.0); MCV 90.6 FL (83-99); NRBC (%) 0.2 /100 WBC (0-0); PLATELET COUNT 337 K/uL (156-360); RBC DIS.WIDTH-CV 14.7 % (11.8-14.6); RBC DIS.WIDTH-SD 48.6 % (39-53); RED BLOOD COUNT 2.76 M/uL (3.80-5.20); WHITE BLOOD COUNT 12.2 K/uL (4.1-10.2)
[2017-07-06 06:18] LABS: CHLORIDE 110 MEQ/L (99-109); CREATININE 0.6 MG/DL (0.6-1.3); GFR ESTIMATE (CALCULATED) > 59 mL/min/; POTASSIUM 3.4 MEQ/L (3.7-5.4); SODIUM 145 MEQ/L (136-147); UREA NITROGEN (BUN) 8 mg/dL (9-23)
[2017-07-06 06:19] LABS: GLUCOSE 106 mg/dL (70-99)
[2017-07-06 08:49] VITALS: BP 135/61
[2017-07-06 15:25] VITALS: BP 147/58
[2017-07-07 00:05] VITALS: BP 131/63
[2017-07-07 06:01] LABS: HEMATOCRIT 23.1 % (36.0-46.0); HEMOGLOBIN 7.7 G/DL (11.9-15.5); MCHC 33.3 G/DL (30.0-36.0); MCV 89.9 FL (83-99); NRBC (%) 0.2 /100 WBC (0-0); PLATELET COUNT 352 K/uL (156-360); RBC DIS.WIDTH-CV 14.5 % (11.8-14.6); RBC DIS.WIDTH-SD 46.9 % (39-53); RED BLOOD COUNT 2.57 M/uL (3.80-5.20); WHITE BLOOD COUNT 9.7 K/uL (4.1-10.2)
[2017-07-07 06:19] LABS: INTER. NORMALIZED RATIO 1.2
[2017-07-07 06:21] LABS: PTT 26.2 SEC (25-37)
[2017-07-07 06:33] LABS: ALBUMIN 2.2 G/DL (3.2-4.8); ALKALINE PHOSPHATASE 72 IU/L (3-129); ALT (GPT) 13 IU/L (3-49); AST (GOT) 13 IU/L (2-34); CHLORIDE 111 MEQ/L (99-109); CREATININE 0.6 MG/DL (0.6-1.3); GFR ESTIMATE (CALCULATED) > 59 mL/min/; GLUCOSE 109 mg/dL (70-99); SODIUM 142 MEQ/L (136-147); TOTAL BILIRUBIN 0.6 MG/DL (0.0-1.0); TOTAL PROTEIN 4.6 G/DL (6.4-8.3); UREA NITROGEN (BUN) 7 mg/dL (9-23)
[2017-07-07 08:00] VITALS: BP 124/60
[2017-07-07 12:50] VITALS: BP 116/57
[2017-07-07 16:03] VITALS: BP 129/56
[2017-07-07 23:43] VITALS: BP 111/55
[2017-07-08 07:00] VITALS: BP 128/62
[2017-07-08 17:13] VITALS: BP 121/60
[2017-07-09 00:09] VITALS: BP 129/61
[2017-07-09 07:00] VITALS: BP 122/59
[2017-07-09 07:16] LABS: BASOPHIL (%) 0.2 % (0-1); EOSINOPHIL (%) 3.2 % (0-5); EOSINOPHIL COUNT 0.3 K/uL (0-0.3); HEMATOCRIT 27.6 % (36.0-46.0); IMMATURE GRANULOCYTE (%) 2.1 % (0.0-0.7); LYMPHOCYTE (%) 10.5 % (15-42); MCH 29.2 PG (29.0-34.0); MCHC 32.6 G/DL (30.0-36.0); MCV 89.6 FL (83-99); MONOCYTE (%) 7.3 % (3-12); MONOCYTE COUNT 0.7 K/uL (0-0.8); NEUTROPHIL (%) 76.7 % (45-76); NEUTROPHIL COUNT 7.5 K/uL (1.8-6.4); RBC DIS.WIDTH-CV 14.4 % (11.8-14.6); RBC DIS.WIDTH-SD 46.2 % (39-53); RED BLOOD COUNT 3.08 M/uL (3.80-5.20); WHITE BLOOD COUNT 9.8 K/uL (4.1-10.2)
[2017-07-09 07:20] LABS: PLATELET COUNT 475 K/uL (156-360)
[2017-07-09 08:08] LABS: ALBUMIN 2.4 G/DL (3.2-4.8); ALKALINE PHOSPHATASE 85 IU/L (3-129); ALT (GPT) 15 IU/L (3-49); AST (GOT) 13 IU/L (2-34); CHLORIDE 106 MEQ/L (99-109); CREATININE 0.6 MG/DL (0.6-1.3); GFR ESTIMATE (CALCULATED) > 59 mL/min/; GLUCOSE 111 mg/dL (70-99); MAGNESIUM 1.8 mg/dl (1.3-2.7); PHOSPHORUS 3.1 mg/dL (2.5-4.9); POTASSIUM 3.9 MEQ/L (3.7-5.4); SODIUM 139 MEQ/L (136-147); TOTAL BILIRUBIN 0.5 MG/DL (0.0-1.0); TOTAL PROTEIN 4.8 G/DL (6.4-8.3); UREA NITROGEN (BUN) 5 mg/dL (9-23)
[2017-07-09 16:00] VITALS: BP 124/89
[2017-07-09 23:27] VITALS: BP 121/54
[2017-07-10 07:17] LABS: CHLORIDE 106 MEQ/L (99-109); CREATININE 0.6 MG/DL (0.6-1.3); GFR ESTIMATE (CALCULATED) > 59 mL/min/; GLUCOSE 120 mg/dL (70-99); POTASSIUM 3.7 MEQ/L (3.7-5.4); SODIUM 139 MEQ/L (136-147); UREA NITROGEN (BUN) 6 mg/dL (9-23)
[2017-07-10 08:18] VITALS: BP 120/58
[2017-07-10 08:20] LABS: HEMATOCRIT 25.2 % (36.0-46.0); HEMOGLOBIN 8.2 G/DL (11.9-15.5); MCHC 32.5 G/DL (30.0-36.0); PLATELET COUNT 490 K/uL (156-360); RBC DIS.WIDTH-CV 14.6 % (11.8-14.6); RBC DIS.WIDTH-SD 46.7 % (39-53); RED BLOOD COUNT 2.83 M/uL (3.80-5.20); WHITE BLOOD COUNT 9.8 K/uL (4.1-10.2)
[2017-07-10] MEDS ORDERED: FLUCONAZOLE200 MG PO (12:16)
[2017-07-10] MEDS ORDERED: AMOX TR-K CLV1 EAC4 PO (12:16)
[2017-07-10] MEDS ORDERED: POTASSIUM CHLO20 MEQ PO (12:17)
[2017-07-10] MEDS ORDERED: HYDROCODON-ACE1 EAC7 PO (12:18)
[2017-07-10] MEDS ORDERED: PRAVACHOL40 MG PO (16:17)
[2017-07-10] MEDS ORDERED: PROTONIX40 MG PO (16:18)
== END 2017-07-10 16:05 | DRG 329 ==
LOC: ENRESERV 22:03 → 2SOUTH 06-27 05:13 → 2EAST 06-27 05:13 → 4EAST 06-27 05:13 → 2SOUTH 06-27 10:34 → ENRESERV 06-27 11:26 → 2SOUTH 06-27 14:08 → ENRESERV 06-27 17:28 → 4EAST 06-27 18:18 → ENRESERV 07-03 07:56 → 2EAST 07-03 10:32
PROVIDERS: Physician Assistant Surgical; Radiology Diagnostic Radiology; Surgery
PROC: 0DSL0ZZ Reposition Transverse Colon, Open Approach (ICD-10-PCS; principal; 2017-06-27)
PROC: 0DQ80ZZ Repair Small Intestine, Open Approach (ICD-10-PCS; principal; 2017-06-27)
PROC: 0DNE4ZZ Release Large Intestine, Percutaneous Endoscopic Approach (ICD-10-PCS; principal; 2017-06-27)
PROC: 0DNW4ZZ Release Peritoneum, Percutaneous Endoscopic Approach (ICD-10-PCS; principal; 2017-06-27)
PROC: 0DN84ZZ Release Small Intestine, Percutaneous Endoscopic Approach (ICD-10-PCS; principal; 2017-06-27)
PROC: 0T9880Z Drainage of Bilateral Ureters with Drainage Device, Via Natural or Artificial Opening Endoscopic (ICD-10-PCS; principal; 2017-06-27)
PROC: 0W9F00Z Drainage of Abdominal Wall with Drainage Device, Open Approach (ICD-10-PCS; principal; 2017-06-27)
PROC: 0W9J30Z Drainage of Pelvic Cavity with Drainage Device, Percutaneous Approach (ICD-10-PCS; 2017-07-05)
PROC: 0W9G30Z Drainage of Peritoneal Cavity with Drainage Device, Percutaneous Approach (ICD-10-PCS; 2017-07-05)
PROC: 0W9G30Z Drainage of Peritoneal Cavity with Drainage Device, Percutaneous Approach (ICD-10-PCS; 2017-07-07)
DX: Z43.3 Encounter for attention to colostomy (principal); K66.0 Peritoneal adhesions (postprocedural) (postinfection); K65.1 Peritoneal abscess; E78.5 Hyperlipidemia, unspecified; Z88.6 Allergy status to analgesic agent; Z53.31 Laparoscopic surgical procedure converted to open procedure; Z88.5 Allergy status to narcotic agent; K63.5 Polyp of colon; Z87.891 Personal history of nicotine dependence; Z86.010 Personal history of colon polyps; I10 Essential (primary) hypertension; E87.70 Fluid overload, unspecified; K56.7 Ileus, unspecified; Z90.710 Acquired absence of both cervix and uterus; R18.8 Other ascites; R60.0 Localized edema; N73.6 Female pelvic peritoneal adhesions (postinfective); K57.92 Diverticulitis of intestine, part unspecified, without perforation or abscess without bleeding
CPT/HCPCS: 10030; 49406; 71046; 74018; 74176; 74177; 80048; 80048 91; 80053; 81003; 83735; 84100; 85025; 85025 91; 85027; 85610; 85730; 87070; 87075; 87086; 87106; 87205; 88305; 94799; 97530 GO; 97530 GP; C1758; C1769; C9113; J1100; J1650; J2001; J2405; J2543; J2795; J3010; J3475; J3480; J7040; J7050; J7120; S0074

== ENCOUNTER 2017-07-10 12:49 | Inpatient (IN) | payer OTHER, MEDICARE ==
[~2017-07-10] VITALS: Ht 162.6 cm; Wt 66.4 kg
[~2017-07-10 12:49] MED LIST changes: +AMOX TR-K CLV1 EAC4 PO; +FLUCONAZOLE200 MG PO; +POTASSIUM CHLO20 MEQ PO
[2017-07-10 15:25] VITALS: BP 118/58
[2017-07-10] MEDS ORDERED: PRAVACHOL40 MG PO (16:17)
[2017-07-10] MEDS ORDERED: PROTONIX40 MG PO (16:18)
[2017-07-10 23:53] VITALS: BP 137/63
[2017-07-11 05:41] VITALS: BP 119/56
[2017-07-11 06:04] LABS: HEMATOCRIT 25.5 % (36.0-46.0); HEMOGLOBIN 8.2 G/DL (11.9-15.5); MCH 28.9 PG (29.0-34.0); MCHC 32.2 G/DL (30.0-36.0); MCV 89.8 FL (83-99); PLATELET COUNT 502 K/uL (156-360); RBC DIS.WIDTH-CV 14.5 % (11.8-14.6); RBC DIS.WIDTH-SD 46.3 % (39-53); RED BLOOD COUNT 2.84 M/uL (3.80-5.20); WHITE BLOOD COUNT 8.2 K/uL (4.1-10.2)
[2017-07-11 06:40] LABS: ALBUMIN 2.5 G/DL (3.2-4.8); ALKALINE PHOSPHATASE 76 IU/L (3-129); ALT (GPT) 10 IU/L (3-49); AST (GOT) 9 IU/L (2-34); CHLORIDE 108 MEQ/L (99-109); CREATININE 0.6 MG/DL (0.6-1.3); GFR ESTIMATE (CALCULATED) > 59 mL/min/; GLUCOSE 123 mg/dL (70-99); POTASSIUM 3.6 MEQ/L (3.7-5.4); SODIUM 139 MEQ/L (136-147); TOTAL BILIRUBIN 0.4 MG/DL (0.0-1.0); TOTAL PROTEIN 5.2 G/DL (6.4-8.3); UREA NITROGEN (BUN) 5 mg/dL (9-23)
[2017-07-11 15:25] VITALS: BP 130/58
[2017-07-11 20:45] VITALS: BP 124/58
[2017-07-12 05:38] VITALS: BP 139/63
[2017-07-12 16:05] VITALS: BP 124/59
[2017-07-13 05:47] VITALS: BP 130/59
[2017-07-13 15:22] VITALS: BP 129/62
[2017-07-14 05:36] VITALS: BP 133/62
[2017-07-14 15:27] VITALS: BP 121/60
[2017-07-15 05:35] LABS: HEMATOCRIT 27.1 % (36.0-46.0); HEMOGLOBIN 8.6 G/DL (11.9-15.5); MCH 28.9 PG (29.0-34.0); MCHC 31.7 G/DL (30.0-36.0); MCV 90.9 FL (83-99); PLATELET COUNT 496 K/uL (156-360); RBC DIS.WIDTH-CV 14.6 % (11.8-14.6); RBC DIS.WIDTH-SD 47.8 % (39-53); RED BLOOD COUNT 2.98 M/uL (3.80-5.20); WHITE BLOOD COUNT 7.2 K/uL (4.1-10.2)
[2017-07-15 05:50] VITALS: BP 111/54
[2017-07-15 06:17] LABS: ALKALINE PHOSPHATASE 77 IU/L (3-129); ALT (GPT) 8 IU/L (3-49); AST (GOT) 10 IU/L (2-34); CHLORIDE 102 MEQ/L (99-109); CREATININE 0.6 MG/DL (0.6-1.3); GFR ESTIMATE (CALCULATED) > 59 mL/min/; GLUCOSE 118 mg/dL (70-99); SODIUM 140 MEQ/L (136-147); TOTAL BILIRUBIN 0.4 MG/DL (0.0-1.0); TOTAL PROTEIN 5.6 G/DL (6.4-8.3); UREA NITROGEN (BUN) 9 mg/dL (9-23)
[2017-07-15 06:18] LABS: POTASSIUM 4.6 MEQ/L (3.7-5.4)
[2017-07-15 15:19] VITALS: BP 121/56
[2017-07-16 05:52] VITALS: BP 120/56
[2017-07-16 15:35] VITALS: BP 112/51
[2017-07-17 05:48] VITALS: BP 144/64
[2017-07-17 15:24] VITALS: BP 126/59
[2017-07-18 05:16] VITALS: BP 120/58
[2017-07-18 07:57] LABS: HEMATOCRIT 30.2 % (36.0-46.0); HEMOGLOBIN 9.6 G/DL (11.9-15.5); MCHC 31.8 G/DL (30.0-36.0); MCV 91.2 FL (83-99); RBC DIS.WIDTH-CV 14.6 % (11.8-14.6); RED BLOOD COUNT 3.31 M/uL (3.80-5.20); WHITE BLOOD COUNT 7.2 K/uL (4.1-10.2)
[2017-07-18 08:13] LABS: ALBUMIN 3.2 G/DL (3.2-4.8); ALKALINE PHOSPHATASE 92 IU/L (3-129); ALT (GPT) 11 IU/L (3-49); AST (GOT) 14 IU/L (2-34); CHLORIDE 103 MEQ/L (99-109); CREATININE 0.6 MG/DL (0.6-1.3); GFR ESTIMATE (CALCULATED) > 59 mL/min/; GLUCOSE 120 mg/dL (70-99); POTASSIUM 4.4 MEQ/L (3.7-5.4); SODIUM 139 MEQ/L (136-147); TOTAL BILIRUBIN 0.4 MG/DL (0.0-1.0); TOTAL PROTEIN 6.1 G/DL (6.4-8.3); UREA NITROGEN (BUN) 11 mg/dL (9-23)
[2017-07-18 08:17] LABS: PLAT.SUFFICIENCY INCREASED
[2017-07-18 08:20] LABS: PLATELET COUNT 345 K/uL (156-360)
[2017-07-18 15:12] VITALS: BP 127/59
[2017-07-19 05:59] VITALS: BP 113/53
[2017-07-19] MEDS ORDERED: FERROUS SULFAT325 MG PO (11:03)
[2017-07-19] MEDS ORDERED: POTASSIUM CHLO20 MEQ PO (11:03)
[2017-07-19 13:12] LABS: HEMATOCRIT 29.6 % (36.0-46.0); HEMOGLOBIN 9.2 G/DL (11.9-15.5); MCH 28.3 PG (29.0-34.0); MCHC 31.1 G/DL (30.0-36.0); MCV 91.1 FL (83-99); PLATELET COUNT 318 K/uL (156-360); RBC DIS.WIDTH-CV 14.5 % (11.8-14.6); RBC DIS.WIDTH-SD 47.5 % (39-53); RED BLOOD COUNT 3.25 M/uL (3.80-5.20); WHITE BLOOD COUNT 6.5 K/uL (4.1-10.2)
[2017-07-19 13:37] LABS: CHLORIDE 102 MEQ/L (99-109); CREATININE 0.7 MG/DL (0.6-1.3); GFR ESTIMATE (CALCULATED) > 59 mL/min/; GLUCOSE 130 mg/dL (70-99); POTASSIUM 4.9 MEQ/L (3.7-5.4); SODIUM 140 MEQ/L (136-147); UREA NITROGEN (BUN) 16 mg/dL (9-23)
[2017-07-19 13:57] LABS: C DIFF TOXIN NEGATIVE (NEGATIVE)
[2017-07-19 15:11] VITALS: BP 112/56
== END 2017-07-19 15:56 | disposition home health service (06) | DRG 92 ==
LOC: 3WEST 12:49 → ENPENDDIS 07-19 → 3WEST 07-19 15:56
PROVIDERS: Physical Medicine & Rehabilitation; Physical Medicine & Rehabilitation Pain Medicine
DX: R26.9 Unspecified abnormalities of gait and mobility (principal); Z98.0 Intestinal bypass and anastomosis status; D62 Acute posthemorrhagic anemia; E83.51 Hypocalcemia; E87.6 Hypokalemia; I10 Essential (primary) hypertension; E78.5 Hyperlipidemia, unspecified; M21.371 Foot drop, right foot; Z87.11 Personal history of peptic ulcer disease; Z87.891 Personal history of nicotine dependence; Z90.49 Acquired absence of other specified parts of digestive tract; Z90.710 Acquired absence of both cervix and uterus
CPT/HCPCS: 74176; 80048; 80053; 85027; 87493; 97110 GO; 97530 GP; J1650

== ENCOUNTER 2017-07-24 18:38 | Inpatient (IN) | payer OTHER, MEDICARE ==
[~2017-07-24] VITALS: Ht 162.6 cm; Wt 56.0 kg
[~2017-07-24 18:38] MED LIST changes: +FERROUS SULFAT325 MG PO; +PRAVACHOL40 MG PO; +PROTONIX40 MG PO
[2017-07-24 19:26] LABS: HEMATOCRIT 30.2 % (36.0-46.0); MCH 29.1 PG (29.0-34.0); MCHC 33.1 G/DL (30.0-36.0); MCV 87.8 FL (83-99); RBC DIS.WIDTH-CV 14.8 % (11.8-14.6); RBC DIS.WIDTH-SD 47.6 % (39-53); RED BLOOD COUNT 3.44 M/uL (3.80-5.20); WHITE BLOOD COUNT 10.1 K/uL (4.1-10.2)
[2017-07-24 19:39] LABS: ALBUMIN 3.5 g/dL (3.2-4.8); CHLORIDE 102 mEq/L (99-109); POTASSIUM 4.3 mEq/L (3.7-5.4); SODIUM 135 mEq/L (136-147)
[2017-07-24 19:41] LABS: GLUCOSE 128 mg/dL (70-99)
[2017-07-24 19:42] LABS: TOTAL PROTEIN 6.9 g/dL (6.4-8.3)
[2017-07-24 19:43] LABS: TOTAL BILIRUBIN 0.9 mg/dL (0.0-1.0)
[2017-07-24 19:45] LABS: ALKALINE PHOSPHATASE 100 IU/L (3-129); CREATININE 0.8 mg/dL (0.6-1.3); GFR ESTIMATE (CALCULATED) > 59 mL/min/
[2017-07-24 19:46] LABS: UREA NITROGEN (BUN) 24 mg/dL (9-23)
[2017-07-24 19:47] LABS: AST (GOT) 11 IU/L (2-34)
[2017-07-24 19:48] LABS: ALT (GPT) 10 IU/L (3-49)
[2017-07-24 20:06] LABS: PLAT.SUFFICIENCY ADEQUATE
[2017-07-24 20:08] LABS: PLATELET COUNT 196 K/uL (156-360)
[2017-07-24 21:07] LABS: APPEARANCE CLOUDY ((CLEAR)); BILIRUBIN MODERATE; BLOOD LARGE; COLOR BROWN ((YELLOW)); GLUCOSE (STRIP) NEGATIVE; KETONES NEGATIVE; LEUKOCYTES MODERATE; NITRITE NEGATIVE; PH, URINE 6.5 (5-8); PROTEIN (STRIP) 300; SPECIFIC GRAVITY 1.025 (1.000-1.030)
[2017-07-24 21:12] LABS: ICTOTEST NEGATIVE
[2017-07-24 21:14] LABS: BACTERIA 4+ /HPF; UCUL ADDED? YES
[2017-07-25] VITALS (9 sets, daily range): BP systolic 117–131; BP diastolic 55–70
[2017-07-26 04:39] VITALS: BP 128/59
[2017-07-26 08:00] VITALS: BP 117/55
[2017-07-26 23:25] VITALS: BP 120/50
[2017-07-27 04:58] VITALS: BP 131/60
[2017-07-27 05:52] LABS: BASOPHIL (%) 0.6 % (0-1); EOSINOPHIL (%) 5.1 % (0-5); EOSINOPHIL COUNT 0.2 K/uL (0-0.3); HEMATOCRIT 29.1 % (36.0-46.0); HEMOGLOBIN 9.4 G/DL (11.9-15.5); IMMATURE GRANULOCYTE (%) 1.9 % (0.0-0.7); LYMPHOCYTE (%) 28.3 % (15-42); LYMPHOCYTE COUNT 0.9 K/uL (1.0-2.8); MCHC 32.3 G/DL (30.0-36.0); MCV 86.6 FL (83-99); MONOCYTE (%) 12.1 % (3-12); MONOCYTE COUNT 0.4 K/uL (0-0.8); NEUTROPHIL COUNT 1.6 K/uL (1.8-6.4); PLATELET COUNT 191 K/uL (156-360); RBC DIS.WIDTH-CV 14.1 % (11.8-14.6); RBC DIS.WIDTH-SD 45.1 % (39-53); RED BLOOD COUNT 3.36 M/uL (3.80-5.20); WHITE BLOOD COUNT 3.2 K/uL (4.1-10.2)
[2017-07-27 06:18] LABS: ALBUMIN 2.8 G/DL (3.2-4.8); ALKALINE PHOSPHATASE 63 IU/L (3-129); ALT (GPT) 9 IU/L (3-49); AST (GOT) 15 IU/L (2-34); CHLORIDE 99 MEQ/L (99-109); CREATININE 0.5 MG/DL (0.6-1.3); GFR ESTIMATE (CALCULATED) > 59 mL/min/; GLUCOSE 97 mg/dL (70-99); SODIUM 136 MEQ/L (136-147); TOTAL BILIRUBIN 0.4 MG/DL (0.0-1.0); TOTAL PROTEIN 5.2 G/DL (6.4-8.3); UREA NITROGEN (BUN) 7 mg/dL (9-23)
[2017-07-27 06:20] LABS: POTASSIUM 3.2 MEQ/L (3.7-5.4)
[2017-07-27 07:33] VITALS: BP 132/54
[2017-07-27 08:06] VITALS: BP 140/78
[2017-07-27 10:29] VITALS: BP 110/50
[2017-07-27 16:30] VITALS: BP 128/60
[2017-07-27 23:17] VITALS: BP 109/57
[2017-07-28 06:58] VITALS: BP 126/62
[2017-07-28 07:44] VITALS: BP 122/58
[2017-07-28 09:37] LABS: HEMATOCRIT 31.6 % (36.0-46.0); HEMOGLOBIN 10.3 G/DL (11.9-15.5); MCH 28.7 PG (29.0-34.0); MCHC 32.6 G/DL (30.0-36.0); PLATELET COUNT 216 K/uL (156-360); RBC DIS.WIDTH-CV 14.4 % (11.8-14.6); RED BLOOD COUNT 3.59 M/uL (3.80-5.20)
[2017-07-28 09:58] LABS: CHLORIDE 100 MEQ/L (99-109); CREATININE 0.6 MG/DL (0.6-1.3); GFR ESTIMATE (CALCULATED) > 59 mL/min/; MAGNESIUM 1.3 mg/dl (1.3-2.7); POTASSIUM 2.9 MEQ/L (3.7-5.4); SODIUM 139 MEQ/L (136-147); UREA NITROGEN (BUN) 6 mg/dL (9-23)
[2017-07-28 09:59] LABS: GLUCOSE 198 mg/dL (70-99)
[2017-07-28] MEDS ORDERED: OCTREOTIDE100 MCG/2 SQ (10:17)
[2017-07-28 10:19] VITALS: BP 118/58
[2017-07-28] MEDS ORDERED: COLACE100 MG PO (10:29)
[2017-07-28 16:30] VITALS: BP 109/53
== END 2017-07-28 19:37 | DRG 862 ==
LOC: EME 18:38 → EDOF 22:35 → 3EAST 22:35 → ENRESERV 22:36 → CANRESERV 23:26 → ENRESERV 23:26 → 3EAST 23:52
PROVIDERS: Physician Assistant Medical; Surgery
PROC: 0W9J30Z Drainage of Pelvic Cavity with Drainage Device, Percutaneous Approach (ICD-10-PCS; principal; 2017-07-25)
DX: T81.4XXA Infection following a procedure, initial encounter (principal); K65.1 Peritoneal abscess; N32.1 Vesicointestinal fistula; I10 Essential (primary) hypertension; R62.7 Adult failure to thrive; E78.5 Hyperlipidemia, unspecified; D64.9 Anemia, unspecified; R00.0 Tachycardia, unspecified; R35.0 Frequency of micturition; J45.909 Unspecified asthma, uncomplicated; Z87.11 Personal history of peptic ulcer disease; Z87.891 Personal history of nicotine dependence; Z90.710 Acquired absence of both cervix and uterus
CPT/HCPCS: 49406; 74177; 80048; 80053; 81003; 83605; 83735; 84100; 85025; 85027; 87040; 87070; 87075; 87076; 87077; 87086 GA; 87186; 87205; 99281; 99285; C1729; C1769; J1335; J1450; J1650; J2354; J3010; J7030; J7040; J7050; J7120; S0074

== ENCOUNTER 2017-08-28 12:17 | Inpatient (IN) | payer OTHER, MEDICARE ==
[~2017-08-28] VITALS: Ht 162.6 cm; Wt 54.5 kg
[~2017-08-28 12:17] MED LIST changes: -CALCIUM 500 +1 EACH PO; +CALCIUM 600 +1 EAC2 PO; +COLACE100 MG PO; +OCTREOTIDE100 MCG/2 SQ
[2017-08-28 13:19] LABS: HEMATOCRIT 35.7 % (36.0-46.0); MCH 28.3 PG (29.0-34.0); MCHC 33.6 G/DL (30.0-36.0); MCV 84.2 FL (83-99); PLATELET COUNT 414 K/uL (156-360); RBC DIS.WIDTH-CV 15.9 % (11.8-14.6); RBC DIS.WIDTH-SD 48.6 % (39-53); RED BLOOD COUNT 4.24 M/uL (3.80-5.20); WHITE BLOOD COUNT 10.3 K/uL (4.1-10.2)
[2017-08-28 13:25] LABS: ALBUMIN 3.4 g/dL (3.2-4.8); CHLORIDE 113 mEq/L (99-109); POTASSIUM 5.1 mEq/L (3.7-5.4); SODIUM 138 mEq/L (136-147)
[2017-08-28 13:27] LABS: GLUCOSE 109 mg/dL (70-99); TOTAL PROTEIN 6.3 g/dL (6.4-8.3)
[2017-08-28 13:29] LABS: TOTAL BILIRUBIN 0.5 mg/dL (0.0-1.0)
[2017-08-28 13:31] LABS: ALKALINE PHOSPHATASE 116 IU/L (3-129); CREATININE 0.9 mg/dL (0.6-1.3); GFR ESTIMATE (CALCULATED) > 59 mL/min/
[2017-08-28 13:32] LABS: UREA NITROGEN (BUN) 34 mg/dL (9-23)
[2017-08-28 13:33] LABS: AST (GOT) 15 IU/L (2-34)
[2017-08-28 13:34] LABS: ALT (GPT) 13 IU/L (3-49)
[2017-08-28 14:35] LABS: APPEARANCE SL.HAZY ((CLEAR)); BILIRUBIN NEGATIVE; BLOOD NEGATIVE; COLOR YELLOW ((YELLOW)); GLUCOSE (STRIP) NEGATIVE; KETONES NEGATIVE; LEUKOCYTES MODERATE; NITRITE POSITIVE; PROTEIN (STRIP) NEGATIVE; SPECIFIC GRAVITY 1.021 (1.000-1.030); UROBILINOGEN 0.2 MG/DL (0.2-1.0)
[2017-08-28 14:41] LABS: BACTERIA RARE /HPF; CALCIUM OXALATE CRYSTALS 1+ /HPF; EPITHELIAL CELLS 2+ /HPF; MUCUS TRACE /LPF; RED BLOOD CELLS 0-5 /HPF (0-5); UCUL ADDED? YES; WHITE BLOOD CELLS 30-40 /HPF (0-5)
[2017-08-28] MEDS ORDERED: K-DUR20 MEQ PO (17:18)
[2017-08-28] MEDS ORDERED: FLEET MINERAL133 ML PR (17:20)
[2017-08-28] MEDS ORDERED: DULCOLAX10 MG PR (17:20)
[2017-08-28] MEDS ORDERED: MILK OF MAGN PO (17:21)
[2017-08-28] MEDS ORDERED: TYLENOL REGULA325 MG PO (17:21)
[2017-08-28 20:08] VITALS: BP 104/50
[2017-08-28 23:40] VITALS: BP 118/56
[2017-08-29 04:32] VITALS: BP 109/58
[2017-08-29 06:05] LABS: C DIFF TOXIN POSITIVE (NEGATIVE)
[2017-08-29 06:22] LABS: BASOPHIL (%) 0.4 % (0-1); EOSINOPHIL (%) 1.2 % (0-5); EOSINOPHIL COUNT 0.1 K/uL (0-0.3); HEMATOCRIT 30.1 % (36.0-46.0); IMMATURE GRANULOCYTE (%) 0.6 % (0.0-0.7); LYMPHOCYTE (%) 19.9 % (15-42); LYMPHOCYTE COUNT 1.6 K/uL (1.0-2.8); MCH 28.1 PG (29.0-34.0); MCHC 33.2 G/DL (30.0-36.0); MCV 84.6 FL (83-99); MONOCYTE (%) 14.1 % (3-12); MONOCYTE COUNT 1.2 K/uL (0-0.8); NEUTROPHIL (%) 63.8 % (45-76); NEUTROPHIL COUNT 5.3 K/uL (1.8-6.4); PLATELET COUNT 344 K/uL (156-360); RBC DIS.WIDTH-CV 15.9 % (11.8-14.6); RED BLOOD COUNT 3.56 M/uL (3.80-5.20); WHITE BLOOD COUNT 8.2 K/uL (4.1-10.2)
[2017-08-29 07:23] LABS: ALBUMIN 2.6 G/DL (3.2-4.8); ALKALINE PHOSPHATASE 74 IU/L (3-129); ALT (GPT) 8 IU/L (3-49); AST (GOT) 9 IU/L (2-34); CHLORIDE 110 MEQ/L (99-109); CREATININE 0.7 MG/DL (0.6-1.3); DIRECT BILIRUBIN 0.1 mg/dL (0.0-0.3); GFR ESTIMATE (CALCULATED) > 59 mL/min/; GLUCOSE 132 mg/dL (70-99); MAGNESIUM 1.2 mg/dl (1.3-2.7); PHOSPHORUS 2.7 mg/dL (2.5-4.9); SODIUM 137 MEQ/L (136-147); TOTAL BILIRUBIN 0.4 MG/DL (0.0-1.0); TRIGLYCERIDES 142 MG/DL (Normal: <150); UREA NITROGEN (BUN) 17 mg/dL (9-23)
[2017-08-29 07:26] LABS: POTASSIUM 3.2 MEQ/L (3.7-5.4)
[2017-08-29 08:00] VITALS: BP 110/68
[2017-08-29 16:30] VITALS: BP 130/70
[2017-08-29 20:46] VITALS: BP 120/60
[2017-08-29 23:21] VITALS: BP 116/64
[2017-08-30 04:50] VITALS: BP 121/69
[2017-08-30 05:25] LABS: BASOPHIL (%) 0.1 % (0-1); EOSINOPHIL (%) 1.3 % (0-5); EOSINOPHIL COUNT 0.1 K/uL (0-0.3); HEMATOCRIT 29.6 % (36.0-46.0); IMMATURE GRANULOCYTE (%) 0.8 % (0.0-0.7); LYMPHOCYTE (%) 18.4 % (15-42); LYMPHOCYTE COUNT 1.4 K/uL (1.0-2.8); MCH 27.9 PG (29.0-34.0); MCHC 33.8 G/DL (30.0-36.0); MCV 82.7 FL (83-99); MONOCYTE (%) 11.1 % (3-12); MONOCYTE COUNT 0.9 K/uL (0-0.8); NEUTROPHIL (%) 68.3 % (45-76); NEUTROPHIL COUNT 5.2 K/uL (1.8-6.4); PLATELET COUNT 376 K/uL (156-360); RBC DIS.WIDTH-CV 15.8 % (11.8-14.6); RBC DIS.WIDTH-SD 47.8 % (39-53); RED BLOOD COUNT 3.58 M/uL (3.80-5.20); WHITE BLOOD COUNT 7.7 K/uL (4.1-10.2)
[2017-08-30 06:09] LABS: CHLORIDE 106 MEQ/L (99-109); CREATININE 0.6 MG/DL (0.6-1.3); GFR ESTIMATE (CALCULATED) > 59 mL/min/; GLUCOSE 159 mg/dL (70-99); IRON 20 MCG/DL (35-150); PHOSPHORUS 3.6 mg/dL (2.5-4.9); POTASSIUM 3.1 MEQ/L (3.7-5.4); SODIUM 136 MEQ/L (136-147); TRANSFERRIN (TIBC) 127.5 mg/dL (215-380); TRANSFERRIN SATUR. 16 % (20-55); UREA NITROGEN (BUN) 13 mg/dL (9-23)
[2017-08-30 08:05] LABS: FERRITIN 116 NG/ML (10-291)
[2017-08-30 08:45] VITALS: BP 112/46
[2017-08-30 15:33] VITALS: BP 126/64
[2017-08-30 20:43] VITALS: BP 122/70
[2017-08-31 00:14] VITALS: BP 124/72
[2017-08-31 05:53] LABS: CHLORIDE 107 MEQ/L (99-109); CREATININE 0.4 MG/DL (0.6-1.3); GFR ESTIMATE (CALCULATED) > 59 mL/min/; GLUCOSE 143 mg/dL (70-99); MAGNESIUM 2.1 mg/dl (1.3-2.7); PHOSPHORUS 3.8 mg/dL (2.5-4.9); SODIUM 138 MEQ/L (136-147); UREA NITROGEN (BUN) 16 mg/dL (9-23)
[2017-08-31 05:54] LABS: POTASSIUM 3.9 MEQ/L (3.7-5.4)
[2017-08-31 07:14] LABS: POTASSIUM 3.5 MEQ/L (3.7-5.4)
[2017-08-31 08:09] VITALS: BP 126/67
[2017-08-31 12:50] LABS: IMM.RETIC FRACTION 13.1 % (3-19); RETIC HGB EQUIVALENT 33.4 (28-36); RETICULOCYTE COUNT 1.8 % (0.5-1.8)
[2017-08-31 15:28] LABS: FOLIC ACID (FOLATE) > 22.0 NG/ML (5.0-22.0)
[2017-08-31 16:18] VITALS: BP 127/62
[2017-08-31 23:47] VITALS: BP 114/68
[2017-09-01 06:08] VITALS: BP 146/72
[2017-09-01 06:45] LABS: CHLORIDE 105 MEQ/L (99-109); CREATININE 0.4 MG/DL (0.6-1.3); GFR ESTIMATE (CALCULATED) > 59 mL/min/; GLUCOSE 115 mg/dL (70-99); MAGNESIUM 1.8 mg/dl (1.3-2.7); PHOSPHORUS 3.3 mg/dL (2.5-4.9); POTASSIUM 3.5 MEQ/L (3.7-5.4); SODIUM 137 MEQ/L (136-147); UREA NITROGEN (BUN) 14 mg/dL (9-23)
[2017-09-01 08:12] VITALS: BP 134/68
[2017-09-01 16:30] VITALS: BP 134/72
[2017-09-01 20:21] VITALS: BP 104/51
[2017-09-01 23:40] VITALS: BP 127/61
[2017-09-02] VITALS (7 sets, daily range): BP systolic 109–135; BP diastolic 54–70
[2017-09-02 06:25] LABS: CHLORIDE 103 MEQ/L (99-109); CREATININE 0.5 MG/DL (0.6-1.3); GFR ESTIMATE (CALCULATED) > 59 mL/min/; GLUCOSE 132 mg/dL (70-99); PHOSPHORUS 3.7 mg/dL (2.5-4.9); SODIUM 136 MEQ/L (136-147); UREA NITROGEN (BUN) 14 mg/dL (9-23)
[2017-09-02 06:28] LABS: MAGNESIUM 2.1 mg/dl (1.3-2.7); POTASSIUM 4.6 MEQ/L (3.7-5.4)
[2017-09-03 04:41] VITALS: BP 120/58
[2017-09-03 08:09] VITALS: BP 130/66
[2017-09-03 08:14] LABS: CHLORIDE 104 MEQ/L (99-109); MAGNESIUM 2.2 mg/dl (1.3-2.7); POTASSIUM 4.4 MEQ/L (3.7-5.4); SODIUM 137 MEQ/L (136-147)
[2017-09-03 08:20] LABS: CREATININE 0.4 MG/DL (0.6-1.3); GFR ESTIMATE (CALCULATED) > 59 mL/min/; GLUCOSE 147 mg/dL (70-99); PHOSPHORUS 3.7 mg/dL (2.5-4.9); UREA NITROGEN (BUN) 17 mg/dL (9-23)
[2017-09-03 11:56] VITALS: BP 122/60
[2017-09-03 16:30] VITALS: BP 134/78
[2017-09-03 20:00] VITALS: BP 109/51
[2017-09-04] VITALS: BP 105/51
[2017-09-04 04:00] VITALS: BP 106/51
[2017-09-04 05:59] LABS: BASOPHIL (%) 0.6 % (0-1); EOSINOPHIL (%) 1.7 % (0-5); EOSINOPHIL COUNT 0.1 K/uL (0-0.3); HEMATOCRIT 28.9 % (36.0-46.0); HEMOGLOBIN 9.4 G/DL (11.9-15.5); IMMATURE GRANULOCYTE (%) 4.7 % (0.0-0.7); LYMPHOCYTE (%) 17.4 % (15-42); LYMPHOCYTE COUNT 1.1 K/uL (1.0-2.8); MCH 27.8 PG (29.0-34.0); MCHC 32.5 G/DL (30.0-36.0); MCV 85.5 FL (83-99); MONOCYTE (%) 10.5 % (3-12); MONOCYTE COUNT 0.7 K/uL (0-0.8); NEUTROPHIL (%) 65.1 % (45-76); NEUTROPHIL COUNT 4.2 K/uL (1.8-6.4); NRBC (%) 0.8 /100 WBC (0-0); RBC DIS.WIDTH-CV 16.3 % (11.8-14.6); RBC DIS.WIDTH-SD 50.9 % (39-53); RED BLOOD COUNT 3.38 M/uL (3.80-5.20); WHITE BLOOD COUNT 6.4 K/uL (4.1-10.2)
[2017-09-04 06:33] LABS: PLAT.SUFFICIENCY ADEQUATE
[2017-09-04 06:39] LABS: ALBUMIN 2.4 G/DL (3.2-4.8); ALKALINE PHOSPHATASE 77 IU/L (3-129); ALT (GPT) 9 IU/L (3-49); AST (GOT) 11 IU/L (2-34); CHLORIDE 103 MEQ/L (99-109); CREATININE 0.5 MG/DL (0.6-1.3); DIRECT BILIRUBIN 0.1 mg/dL (0.0-0.3); GFR ESTIMATE (CALCULATED) > 59 mL/min/; GLUCOSE 143 mg/dL (70-99); PHOSPHORUS 3.5 mg/dL (2.5-4.9); PREALBUMIN 8.6 mg/dL (10-40); SODIUM 136 MEQ/L (136-147); TRIGLYCERIDES 138 MG/DL (Normal: <150); UREA NITROGEN (BUN) 15 mg/dL (9-23)
[2017-09-04 06:50] LABS: PLATELET COUNT 254 K/uL (156-360)
[2017-09-04 06:59] LABS: TOTAL BILIRUBIN 0.2 MG/DL (0.0-1.0)
[2017-09-04 08:44] VITALS: BP 112/52
[2017-09-04 16:00] VITALS: BP 98/52
[2017-09-04 20:49] VITALS: BP 107/52
[2017-09-05 00:37] VITALS: BP 118/56
[2017-09-05 04:10] VITALS: BP 127/57
[2017-09-05 06:12] LABS: CHLORIDE 109 MEQ/L (99-109); CREATININE 0.4 MG/DL (0.6-1.3); GFR ESTIMATE (CALCULATED) > 59 mL/min/; GLUCOSE 128 mg/dL (70-99); MAGNESIUM 2.2 mg/dl (1.3-2.7); PHOSPHORUS 3.1 mg/dL (2.5-4.9); POTASSIUM 4.5 MEQ/L (3.7-5.4); SODIUM 140 MEQ/L (136-147); UREA NITROGEN (BUN) 19 mg/dL (9-23)
[2017-09-05 08:37] VITALS: BP 122/50
== END 2017-09-05 09:56 | disposition designated cancer center or children's hospital (05) | DRG 394 ==
LOC: EME 12:17 → EDOF 16:21 → 3EAST 16:21 → ENRESERV 16:25 → 3EAST 19:33
PROVIDERS: Emergency Medicine; Internal Medicine Hematology & Oncology; Physician Assistant; Surgery
PROC: 3E0436Z Introduction of Nutritional Substance into Central Vein, Percutaneous Approach (ICD-10-PCS; principal; 2017-08-29)
DX: K91.89 Other postprocedural complications and disorders of digestive system (principal); Y83.2 Surgical operation with anastomosis, bypass or graft as the cause of abnormal reaction of the patient, or of later complication, without mention of misadventure at the time of the procedure; A04.72 Enterocolitis due to Clostridium difficile, not specified as recurrent; E44.0 Moderate protein-calorie malnutrition; Z68.20 Body mass index [BMI] 20.0-20.9, adult; E87.6 Hypokalemia; D50.0 Iron deficiency anemia secondary to blood loss (chronic); D63.8 Anemia in other chronic diseases classified elsewhere; N32.1 Vesicointestinal fistula; I10 Essential (primary) hypertension; E78.5 Hyperlipidemia, unspecified; J45.909 Unspecified asthma, uncomplicated; I38 Endocarditis, valve unspecified; Z86.010 Personal history of colon polyps; Z87.11 Personal history of peptic ulcer disease; Z87.19 Personal history of other diseases of the digestive system; Z90.49 Acquired absence of other specified parts of digestive tract; Z90.710 Acquired absence of both cervix and uterus; Z87.891 Personal history of nicotine dependence
CPT/HCPCS: 74176; 74177; 76937; 80048; 80053; 81003; 82150 91; 82248; 82607; 82728; 82746; 83540; 83735; 84100; 84134; 84466; 84478; 84630 90; 84999; 85025; 85027; 85046; 87070; 87075; 87077; 87086; 87186; 87205; 87493; 99281; 99285; J0881; J1650; J2354; J3475; J3480; J7030; J7040; J7050; Q0138

== ENCOUNTER → 2017-09-14 | Outpatient (CLI) | payer OTHER ==
[~2017-09-14] MED LIST changes: +DULCOLAX10 MG PR; +FLEET MINERAL133 ML PR; +K-DUR20 MEQ PO; +MILK OF MAGN PO; +TYLENOL REGULA325 MG PO
== END | disposition designated cancer center or children's hospital (05) ==
LOC: RAD 14:21
DX: R93.3 Abnormal findings on diagnostic imaging of other parts of digestive tract (principal); Z98.890 Other specified postprocedural states
CPT/HCPCS: 74177

== ENCOUNTER → 2017-09-29 | Outpatient (CLI) | payer OTHER, MEDICARE | END | disposition home or self-care (01) | LOC: RAD 09:09 | DX: N73.9 Female pelvic inflammatory disease, unspecified (principal); N32.9 Bladder disorder, unspecified; K63.9 Disease of intestine, unspecified; R91.8 Other nonspecific abnormal finding of lung field; K76.0 Fatty (change of) liver, not elsewhere classified; K80.20 Calculus of gallbladder without cholecystitis without obstruction; K86.89 Other specified diseases of pancreas; N28.1 Cyst of kidney, acquired; K76.9 Liver disease, unspecified; N28.9 Disorder of kidney and ureter, unspecified; L02.211 Cutaneous abscess of abdominal wall; M47.9 Spondylosis, unspecified; Z98.890 Other specified postprocedural states; Z90.710 Acquired absence of both cervix and uterus; R93.5 Abnormal findings on diagnostic imaging of other abdominal regions, including retroperitoneum | CPT/HCPCS: 74177 ==

== ENCOUNTER → 2017-10-16 | Outpatient (CLI) | payer OTHER, MEDICARE | END | disposition designated cancer center or children's hospital (05) | LOC: RAD 10:23 | DX: K91.89 Other postprocedural complications and disorders of digestive system (principal) | CPT/HCPCS: 74177 ==

== ENCOUNTER → 2017-11-06 | Outpatient (CLI) | payer OTHER, MEDICARE | LOC: RAD 12:00 | DX: S42.472A Displaced transcondylar fracture of left humerus, initial encounter for closed fracture (principal); M25.522 Pain in left elbow | CPT/HCPCS: 73700 ==